=== PATIENT | female | born 1995 | race Caucasian/White ===

== ENCOUNTER → 2016-04-11 | Outpatient (REF) | payer BC | LOC: M LAB REF 09:12 | PROVIDERS: ATTEND Physician Assistant | DX: J03.90 Acute tonsillitis, unspecified (principal) ==

== ENCOUNTER → 2016-08-17 | Outpatient (CLI) | payer OTHER ==
[2016-08-18 11:34] LABS: CONTROL LINE MONO EB INT CTR LINE PRESENT; MONO REFLEX EBV VCA IgM NEGATIVE (NEGATIVE)
== END ==
LOC: M WUC 12:19
PROVIDERS: ATTEND Physician Assistant Medical
DX: R53.82 Chronic fatigue, unspecified (principal); J02.9 Acute pharyngitis, unspecified

== ENCOUNTER → 2017-03-16 | Outpatient (REF) | payer OTHER ==
[2017-03-16 16:10] LABS: CHLAMYDIA DNA AMPLIFICATION NEGATIVE (NEGATIVE); GC DNA AMPLIFICATION NEGATIVE (NEGATIVE)
== END ==
LOC: M LAB REF 13:46
DX: Z11.3 Encounter for screening for infections with a predominantly sexual mode of transmission (principal)
CPT/HCPCS: 87591

== ENCOUNTER → 2017-04-17 | Outpatient (CLI) | payer OTHER ==
[2017-04-17 17:38] LABS: BASO % 0.3 % (0.0-1.0); EOS % 0.3 % (0.0-3.0); HEMOGLOBIN 13.1 g/dl (12.0-16.0); IMMATURE GRANULOCYTE % 0.3 % (0-3.0); LYMPH # 1.7 10^3/uL (1.5-6.5); LYMPH % 27.6 % (24.0-44.0); MEAN CORPUSCULAR HEMOGLOBIN 28.3 pg (27.0-33.0); MEAN CORPUSCULAR HGB CONC 33.6 g/dl (32.0-36.5); MEAN CORPUSCULAR VOLUME 84.2 fl (80.0-96.0); MONO # 0.6 10^3/uL (0.0-0.8); MONO % 8.7 % (0.0-5.0); NEUTROPHILS % 62.8 % (36.0-66.0); PLATELET COUNT, AUTOMATED 216 10^3/uL (150-450); RED BLOOD COUNT 4.63 10^6/uL (4.00-5.40); RED CELL DISTRIBUTION WIDTH 12.1 % (11.5-14.5); WHITE BLOOD COUNT 6.3 10^3/uL (4.0-10.0)
[2017-04-17 18:21] LABS: FREE T4 1.06 NG/DL (0.76-1.46)
== END ==
LOC: M WUC 14:56
DX: R53.83 Other fatigue (principal); F41.1 Generalized anxiety disorder
CPT/HCPCS: 84443

== ENCOUNTER → 2018-02-18 | Outpatient (CLI) | payer OTHER ==
--- NOTE | 2018-02-21 16:10 | SLEEPHOME ---
DATE OF PROCEDURE: 02/18/2018 ORDERED BY: Dr. Kline Diagnostic home sleep testing was performed for evaluation for obstructive sleep apnea syndrome in this patient with a history of somnolence. For testing a nocturnal T3 respiratory monitoring device was used. Continuous record was made of pulse, oxygen saturation, airflow, chest and abdominal strain and body position. 10 hours 59 minutes of data were reviewed. There were 7 hours and 14 minutes marked as time in bed. During the interval marked time in bed, there were only 17 respiratory events identified of 10 seconds in duration or greater for a respiratory event index of 2.3. Baseline pulse rate was 71 beats per minute. Pulse rate ranged from 28-110. Baseline saturation 94%. Saturations fell to 81%. The oxygen desaturation index was 1.9. Testing was performed in both the supine and nonsupine positions. IMPRESSION: Borderline home sleep testing with patterning suggesting the obstructive sleep apnea syndrome. RECOMMENDATIONS: The frequency of events identified on this home test was low, however home testing is known to underestimate the frequency and severity of respiratory events. Given the oxygen desaturations identified, close clinical followup is recommended and if sleep symptoms persist formal in laboratory sleep testing is significantly more sensitive in identifying obstructive sleep apnea.
== END ==
LOC: M SLEEP HO 13:12
PROVIDERS: ATTEND Internal Medicine Pulmonary Disease
DX: R40.0 Somnolence (principal)

== ENCOUNTER → 2018-03-11 | Outpatient (CLI) | payer OTHER ==
[2018-03-11 17:23] LABS: ALBUMIN 3.9 GM/DL (3.2-5.2); ALT/SGPT 16 U/L (12-78); BILIRUBIN,TOTAL 0.3 MG/DL (0.2-1.0); BLOOD UREA NITROGEN 12 MG/DL (7-18); C REACTIVE PROTEIN QUANTITATIV 1.72 MG/DL (0.00-0.30); CALCIUM LEVEL 8.9 MG/DL (8.5-10.1); CARBON DIOXIDE LEVEL 27 MEQ/L (21-32); CHLORIDE LEVEL 103 MEQ/L (98-107); CREATININE FOR GFR 0.85 MG/DL (0.55-1.30); GLOMERULAR FILTRATION RATE > 60.0 (>60); GLUCOSE, FASTING 88 MG/DL (70-100); POTASSIUM SERUM 3.7 MEQ/L (3.5-5.1); SODIUM LEVEL 138 MEQ/L (136-145); TOTAL PROTEIN 7.7 GM/DL (6.4-8.2)
[2018-03-11 17:26] LABS: BASO % 0.3 % (0.0-1.0); EOS # 0.1 10^3/uL (0.0-0.50); EOS % 0.7 % (0.0-3.0); HEMATOCRIT 42.1 % (36.0-47.0); HEMOGLOBIN 13.8 g/dl (12.0-15.5); LYMPH # 2.4 10^3/uL (1.5-6.5); LYMPH % 31.6 % (24.0-44.0); MEAN CORPUSCULAR HEMOGLOBIN 27.5 pg (27.0-33.0); MEAN CORPUSCULAR HGB CONC 32.8 g/dl (32.0-36.5); MEAN CORPUSCULAR VOLUME 83.9 fl (80.0-96.0); MONO # 0.7 10^3/uL (0.0-0.8); MONO % 8.9 % (0.0-5.0); NEUTROPHILS # 4.4 10^3/uL (1.8-7.7); NEUTROPHILS % 58.4 % (36.0-66.0); PLATELET COUNT, AUTOMATED 241 10^3/uL (150-450); RED BLOOD COUNT 5.02 10^6/uL (4.00-5.40); WHITE BLOOD COUNT 7.5 10^3/uL (4.0-10.0)
[2018-03-11 17:28] LABS: TOTAL 25(OH) VITAMIN D 46.5 NG/ML (30.0-100.0)
[2018-03-11 19:05] LABS: ERYTHROCYTE SEDIMENTATION RATE 11 mm/hr (0-20)
[2018-03-13 14:53] LABS: ANTINUCLEAR ANTIBODIES DIRECT Negative (Negative); Lyme Disease IgG/IgM Antibodie <0.91 ISR (0.00-0.90); Lyme Disease IgM Ab Quantitati <0.80 index (0.00-0.79)
== END ==
LOC: M WUC 12:20
PROVIDERS: ATTEND Physician Assistant
DX: R53.82 Chronic fatigue, unspecified (principal)

== ENCOUNTER → 2018-04-15 | Outpatient (CLI) | payer OTHER ==
--- NOTE | 2018-04-17 07:22 | SLEEPCENT ---
DATE OF PROCEDURE: 04/15/2018 ORDERED BY: Dr. Kline Nocturnal polysomnography was performed for evaluation of sleep physiology in this patient with hypersomnolence. 7 hours and 30 minutes of data were reviewed. There were 321 minutes of sleep identified. Sleep latency was prolonged at 38 minutes. The patient did not achieve rapid eye movement (REM) sleep. Sleep architecture was poor with poor progression. There was a prolonged period of wake between 1:45 and 3:00 a.m. resulting in reduced sleep efficiency of 72%. The electrocardiogram showed a sinus rhythm with some mildly wandering baseline. The average heart rate was 70 beats per minute. Rate ranged 55-90. Electroencephalogram (EEG) showed significant coarsening in background. There were no focal events identified. Possibly medication effect. Flow channels revealed only one respiratory events of 10 seconds in duration or greater for an apnea-hypopnea index well within normal limits of 0.2. Some snoring was noted, however, respiratory related arousals occurred only 0.6 times per hour and oxygen saturations remained normal. There was some scattered limb activity, but no trains of events. Limb movement arousal index was 6. IMPRESSION: Abnormal nocturnal polysomnography with poor sleep architecture and poor progression, possibly medication effect.
== END ==
LOC: M SLEEP 19:51
PROVIDERS: ATTEND Internal Medicine Pulmonary Disease
DX: R40.0 Somnolence (principal)

== ENCOUNTER → 2018-05-08 | Outpatient (REF) | payer OTHER ==
[2018-05-08 20:24] LABS: CHLAMYDIA DNA AMPLIFICATION NEGATIVE (NEGATIVE); GC DNA AMPLIFICATION NEGATIVE (NEGATIVE)
== END ==
LOC: M LAB REF 17:05
PROVIDERS: ATTEND Family Medicine
DX: Z11.3 Encounter for screening for infections with a predominantly sexual mode of transmission (principal); Z12.4 Encounter for screening for malignant neoplasm of cervix; R35.0 Frequency of micturition

== ENCOUNTER → 2018-09-10 | Outpatient (REF) | payer OTHER ==
[2018-09-10 16:35] LABS: FREE T4 0.94 NG/DL (0.76-1.46); THYROID STIMULATING HORMONE 0.911 uIU/ML (0.358-3.740)
[2018-09-10 16:43] LABS: TOTAL 25(OH) VITAMIN D 41.4 NG/ML (30.0-100.0)
== END ==
LOC: M LAB REF 15:40
PROVIDERS: ATTEND Family Medicine
DX: Z13.29 Encounter for screening for other suspected endocrine disorder (principal); E55.9 Vitamin D deficiency, unspecified

== ENCOUNTER → 2019-01-01 | Outpatient (REF) | payer OTHER ==
[2019-01-01 14:07] LABS: APPEARANCE, URINE HAZY (CLEAR); BACTERIA, URINE AUTO NEGATIVE (NEGATIVE); BILIRUBIN, URINE AUTO NEGATIVE (NEGATIVE); BLOOD, URINE BLOOD NEGATIVE (NEGATIVE); CALCIUM OXALATE CRYSTALS SMALL; COLOR, URINE YELLOW (YELLOW); GLUCOSE, URINE (UA) AUTO NEGATIVE (NEGATIVE); KETONE, URINE AUTO NEGATIVE (NEGATIVE); LEUKOCYTE ESTERASE, URINE AUTO NEGATIVE (NEGATIVE); MUCUS, URINE SMALL (NEGATIVE); NITRITE, URINE AUTO NEGATIVE (NEGATIVE); PROTEIN, URINE AUTO NEGATIVE (NEGATIVE); RBC, URINE AUTO 2 /HPF (0-3); SPECIFIC GRAVITY URINE AUTO 1.027 (1.002-1.035); SQUAMOUS EPITHELIAL CELL UR AU 1 /HPF (0-6); UROBILINOGEN, URINE AUTO 0.2 mg/dL (0.0-2.0); WBC, URINE AUTO 1 /HPF (0-3)
== END ==
LOC: M SMT 13:05
PROVIDERS: ATTEND Nurse Practitioner Family
DX: R32 Unspecified urinary incontinence (principal)

== ENCOUNTER 2019-01-21 19:47 | Outpatient (CLI) | payer OTHER ==
--- NOTE | 2019-01-23 07:26 | SLEEPMSLT ---
DATE OF PROCEDURE: 01/21/2019 ORDERING PHYSICIAN: Dr. Stephania Hickman, copy to Dr. Hope. INTERPRETATION: Nocturnal polysomnography with multiple sleep latency testing was performed for evaluation of persistent somnolence. For the night time, testing of 8 hours and 57 minutes of data were reviewed. There were 454.5 minutes of sleep identified. Sleep latency was normal at 18.5 minutes. REM sleep was delayed at 218 minutes but sleep architecture was reasonably good with minimal fragmentation. There were two Rapid eye movement (REM) cycles noted. Overall sleep efficiency was 94.6%. The electrocardiogram showed sinus rhythm with an average heart rate of 82 beats per minute. Rate ranged 60-105. EEG showed essentially normal waveforms for awake and sleep. There were only seven respiratory events identified of 10 seconds in duration or greater for an apnea-hypopnea index well within normal limits at 0.9, minimal snoring was noted in the course of study and there was little activity in the limb EMG leads. Oxygen saturations remained 90% plus. Nocturnal polysomnography was followed by multiple sleep latency testing. Four nap opportunities were offered at 2-hour intervals. Sleep was appreciated on four out of four nap opportunities. No REM sleep was appreciated. No significant EEG artifact was noted on the first two the study. The patient's mean sleep latency was in the gr ay zone at 7 minutes. IMPRESSION: Normal nocturnal polysomnography was mild snoring. Multiple sleep latency testing revealing a mean sleep latency of 7 minutes is in the castillo zone between normal greater than 10 minutes and pathologic less than 5.
== END 2019-01-22 15:00 ==
LOC: M SLEEP 19:47
PROVIDERS: ATTEND Internal Medicine Pulmonary Disease
DX: R40.0 Somnolence (principal)

== ENCOUNTER → 2019-06-10 | Outpatient (CLI) | payer OTHER | LOC: M LABSMTC 14:13 | PROVIDERS: ATTEND Family Medicine | DX: Z11.59 Encounter for screening for other viral diseases (principal) ==

== ENCOUNTER 2019-09-12 13:00 | Emergency (ER) | payer BC, OTHER ==
[2019-10-19 17:08] LABS: BASO % 0.5 % (0.0-1.0); EOS % 0.5 % (0.0-3.0); HEMATOCRIT 45.2 % (36.0-47.0); HEMOGLOBIN 14.6 g/dl (12.0-15.5); LYMPH # 2.7 10^3/uL (1.5-5.0); LYMPH % 31.8 % (24.0-44.0); MEAN CORPUSCULAR HEMOGLOBIN 27.8 pg (27.0-33.0); MEAN CORPUSCULAR HGB CONC 32.3 g/dl (32.0-36.5); MEAN CORPUSCULAR VOLUME 86.1 fl (80.0-96.0); MONO # 0.6 10^3/uL (0.0-0.8); MONO % 7.4 % (0.0-5.0); NEUTROPHILS % 59.7 % (36.0-66.0); PLATELET COUNT, AUTOMATED 266 10^3/uL (150-450); RED BLOOD COUNT 5.25 10^6/uL (4.00-5.40); WHITE BLOOD COUNT 8.4 10^3/uL (4.0-10.0)
[2019-11-22 11:50] LABS: ALBUMIN 3.9 GM/DL (3.2-5.2); ALT/SGPT 26 U/L (12-78); BILIRUBIN,TOTAL 0.3 MG/DL (0.2-1.0); BLOOD UREA NITROGEN 16 MG/DL (7-18); CALCIUM LEVEL 9.7 MG/DL (8.5-10.1); CARBON DIOXIDE LEVEL 29 MEQ/L (21-32); CHLORIDE LEVEL 105 MEQ/L (98-107); CREATININE FOR GFR 0.91 MG/DL (0.55-1.30); GLOMERULAR FILTRATION RATE > 60.0 (>60); GLUCOSE, FASTING 87 MG/DL (70-100); HEPATITIS B SURFACE ANTIBODY NEGATIVE (POSITIVE); HEPATITIS B SURFACE ANTIGEN NEGATIVE (NEGATIVE); HIV 1&2 SCREEN CENTAUR NEGATIVE (NEGATIVE); POTASSIUM SERUM 4.3 MEQ/L (3.5-5.1); SODIUM LEVEL 140 MEQ/L (136-145); TOTAL PROTEIN 8.5 GM/DL (6.4-8.2)
[2019-11-22 11:53] LABS: HCG, SERUM QUALITATIVE NEGATIVE (NEGATIVE)
== END 2019-09-12 13:47 | disposition home or self-care (01) ==
LOC: M ED 13:00
DX: S61.230A Puncture wound without foreign body of right index finger without damage to nail, initial encounter (principal); Z77.21 Contact with and (suspected) exposure to potentially hazardous body fluids; W45.8XXA Other foreign body or object entering through skin, initial encounter; Y92.89 Other specified places as the place of occurrence of the external cause; Y93.F9 Activity, other caregiving; Y99.0 Civilian activity done for income or pay; Z79.3 Long term (current) use of hormonal contraceptives; Z79.899 Other long term (current) drug therapy

== ENCOUNTER → 2020-02-23 | Outpatient (CLI) | payer SELFPAY | LOC: M LABSMTC 11:54 | PROVIDERS: ATTEND Pediatrics | DX: Z20.822 Contact with and (suspected) exposure to COVID-19 (principal) ==

== ENCOUNTER → 2020-09-13 | Outpatient (CLI) | payer BC ==
[2020-09-13 12:05] LABS: BASO % 0.3 % (0.0-1.0); EOS # 0.1 10^3/uL (0.0-0.5); EOS % 0.7 % (0.0-3.0); HEMATOCRIT 41.6 % (36.0-47.0); HEMOGLOBIN 13.8 g/dl (12.0-15.5); LYMPH # 2.5 10^3/uL (1.5-5.0); LYMPH % 35.8 % (24.0-44.0); MEAN CORPUSCULAR HGB CONC 33.2 g/dl (32.0-36.5); MEAN CORPUSCULAR VOLUME 84.4 fl (80.0-96.0); MONO # 0.6 10^3/uL (0.0-0.8); MONO % 9.2 % (2.0-8.0); NEUTROPHILS # 3.7 10^3/uL (1.5-8.5); NEUTROPHILS % 53.7 % (36.0-66.0); PLATELET COUNT, AUTOMATED 233 10^3/uL (150-450); RED BLOOD COUNT 4.93 10^6/uL (4.00-5.40)
[2020-09-13 12:16] LABS: ALBUMIN 3.7 GM/DL (3.2-5.2); ALT/SGPT 18 U/L (12-78); BILIRUBIN,TOTAL 0.3 MG/DL (0.2-1.0); BLOOD UREA NITROGEN 13 MG/DL (7-18); CALCIUM LEVEL 8.8 MG/DL (8.5-10.1); CARBON DIOXIDE LEVEL 26 MEQ/L (21-32); CHLORIDE LEVEL 107 MEQ/L (98-107); CHOLESTEROL LEVEL 201 MG/DL (<200); CHOLESTEROL RISK RATIO 2.258 (<5); CREATININE FOR GFR 0.82 MG/DL (0.55-1.30); FREE T4 0.97 NG/DL (0.76-1.46); GLOMERULAR FILTRATION RATE > 60.0 (>60); GLUCOSE, FASTING 93 MG/DL (70-100); HDL CHOLESTEROL 89 MG/DL (>40); LDL CHOLESTEROL 90 MG/DL (<100); NON-HDL-C 112 MG/DL; POTASSIUM SERUM 4.3 MEQ/L (3.5-5.1); RHEUMATOID FACTOR QUANT < 10.0 IU/ML (<15.0); SODIUM LEVEL 138 MEQ/L (136-145); TOTAL PROTEIN 7.8 GM/DL (6.4-8.2); TRIGLYCERIDES LEVEL 108 MG/DL (<150)
[2020-09-13 12:18] LABS: TOTAL 25(OH) VITAMIN D 30.2 NG/ML (30.0-100.0)
[2020-09-15 00:07] LABS: ANA (HEP2) Negative (.); CYCLIC CITRULLINATED PEPTIDE 8 units (0-19); Lyme Disease IgG/IgM Antibodie <0.91 ISR (0.00-0.90); Lyme Disease IgM Ab Quantitati <0.80 index (0.00-0.79)
== END ==
LOC: M WUC 09:21
PROVIDERS: ATTEND Family Medicine
DX: E55.9 Vitamin D deficiency, unspecified (principal); R53.82 Chronic fatigue, unspecified; Z13.0 Encounter for screening for diseases of the blood and blood-forming organs and certain disorders involving the immune mechanism; Z13.29 Encounter for screening for other suspected endocrine disorder; Z13.220 Encounter for screening for lipoid disorders

== ENCOUNTER → 2020-09-23 | Outpatient (CLI) | payer BC ==
--- NOTE | 2020-09-23 16:22 | REP ---
INDICATION: PELVIC AND PERINEAL PAIN. COMPARISON: None. TECHNIQUE: Transvesical and transvaginal scanning FINDINGS: The uterus measures 7.1 x 2.8 x 3.6 cm. The parenchymal echo pattern is within normal limits. The endometrial echo complex is smooth and unremarkable appearing measuring 3 mm in its greatest thickness. Right ovary measures 2.1 x 1.2 x 1.1 cm and is within normal limits with an RI 0.54. Left ovary measures 2 x 1.6 x 1.3 cm and is within normal limits with an RI 0.49. Urinary bladder measures 5 x 3 x 7 cm. IMPRESSION: Within normal limits <Electronically signed by Galo Zabala > 09/23/20 [id number]
== END ==
LOC: M RAD 15:34
PROVIDERS: ATTEND Family Medicine
DX: R10.2 Pelvic and perineal pain (principal)

== ENCOUNTER → 2020-10-27 | Outpatient (REF) | LOC: M LABSMTC 10:41 | PROVIDERS: ATTEND Pediatrics | DX: Z20.822 Contact with and (suspected) exposure to COVID-19 (principal) ==

== ENCOUNTER → 2021-10-30 | Outpatient (REF) | LOC: M LABSMTC 11:20 | PROVIDERS: ATTEND Family Medicine | DX: Z20.822 Contact with and (suspected) exposure to COVID-19 (principal) ==

== ENCOUNTER → 2021-11-01 | Outpatient (REF) | LOC: M LABSMTC 10:00 | PROVIDERS: ATTEND Family Medicine | DX: Z20.822 Contact with and (suspected) exposure to COVID-19 (principal) ==

== ENCOUNTER → 2021-12-19 | Outpatient (REF) ==
[2021-12-19 15:15] LABS: RSV AMPLIFICATION NEGATIVE (NEGATIVE)
== END ==
LOC: M EMP 12:38
PROVIDERS: ATTEND Family Medicine
DX: Z11.52 Encounter for screening for COVID-19 (principal)

== ENCOUNTER → 2022-01-17 | Outpatient (REF) ==
[2022-01-17 13:41] LABS: RSV AMPLIFICATION NEGATIVE (NEGATIVE)
== END ==
LOC: M LABSMTC 10:59
PROVIDERS: ATTEND Family Medicine
DX: Z20.822 Contact with and (suspected) exposure to COVID-19 (principal)

== ENCOUNTER → 2022-02-17 | Outpatient (REF) ==
[2022-02-17 10:11] LABS: RSV AMPLIFICATION NEGATIVE (NEGATIVE)
== END ==
LOC: M EMP 08:13
PROVIDERS: ATTEND Family Medicine
DX: Z11.59 Encounter for screening for other viral diseases (principal)

== ENCOUNTER → 2023-01-15 | Outpatient (REF) ==
[2023-01-15 15:05] LABS: RSV AMPLIFICATION NEGATIVE (NEGATIVE)
== END ==
LOC: M EMP 10:39
PROVIDERS: ATTEND Family Medicine
DX: Z11.52 Encounter for screening for COVID-19 (principal)

== ENCOUNTER → 2023-03-16 | Outpatient (REF) | LOC: M EMP 10:42 | PROVIDERS: ATTEND Family Medicine | DX: Z53.9 Procedure and treatment not carried out, unspecified reason (principal) ==

== ENCOUNTER → 2023-12-06 | Outpatient (REF) | payer BC | LOC: M LAB REF 17:18 | PROVIDERS: ATTEND Family Medicine | DX: J06.9 Acute upper respiratory infection, unspecified (principal) ==

== ENCOUNTER → 2023-12-13 | Outpatient (CLI) | payer BC ==
[2023-12-13 13:19] LABS: HEMATOCRIT 39.6 % (36.0-47.0); HEMOGLOBIN 13.2 g/dl (12.0-15.5); MEAN CORPUSCULAR HEMOGLOBIN 28.9 pg (27.0-33.0); MEAN CORPUSCULAR HGB CONC 33.3 g/dl (32.0-36.5); MEAN CORPUSCULAR VOLUME 86.8 fl (80.0-96.0); PLATELET COUNT, AUTOMATED 256 10^3/uL (150-450); RED BLOOD COUNT 4.56 10^6/uL (4.00-5.40); WHITE BLOOD COUNT 9.4 10^3/uL (4.0-10.0)
[2023-12-13 15:34] LABS: GC DNA AMPLIFICATION NEGATIVE (NEGATIVE)
[2023-12-13 19:13] LABS: HIV 1&2 SCREEN NEGATIVE (NEGATIVE)
[2023-12-13 19:26] LABS: HEPATITIS C VIRUS ABY INDEX < 0.02 INDEX (<0.8)
== END ==
LOC: M PLALAB 10:45
PROVIDERS: ATTEND Advanced Practice Midwife
DX: Z34.01 Encounter for supervision of normal first pregnancy, first trimester (principal)

== ENCOUNTER → 2023-12-13 | Outpatient (REF) | payer BC | LOC: M PLALAB 10:29 | PROVIDERS: ATTEND Advanced Practice Midwife | DX: Z53.9 Procedure and treatment not carried out, unspecified reason (principal) ==

== ENCOUNTER → 2024-01-18 | Outpatient (REF) | payer BC | LOC: M PLALAB 10:14 | PROVIDERS: ATTEND Advanced Practice Midwife | DX: O99.342 Other mental disorders complicating pregnancy, second trimester (principal); Z3A.00 Weeks of gestation of pregnancy not specified ==

== ENCOUNTER → 2024-02-19 | Outpatient (REF) | LOC: M EMP 09:17 | PROVIDERS: ATTEND Family Medicine | DX: Z11.52 Encounter for screening for COVID-19 (principal) ==

== ENCOUNTER → 2024-02-21 | Outpatient (REF) | LOC: M EMP 09:55 | PROVIDERS: ATTEND Family Medicine | DX: Z01.89 Encounter for other specified special examinations (principal) ==

== ENCOUNTER → 2024-02-29 | Outpatient (CLI) | payer BC | LOC: M WHC 08:29 | PROVIDERS: ATTEND Advanced Practice Midwife | DX: O99.342 Other mental disorders complicating pregnancy, second trimester (principal); Z3A.21 21 weeks gestation of pregnancy ==

== ENCOUNTER → 2024-03-28 | Outpatient (CLI) | payer BC ==
[2024-03-28 15:40] LABS: HEMATOCRIT 35.5 % (36.0-47.0); HEMOGLOBIN 11.9 g/dl (12.0-15.5); MEAN CORPUSCULAR HEMOGLOBIN 29.8 pg (27.0-33.0); MEAN CORPUSCULAR HGB CONC 33.5 g/dl (32.0-36.5); PLATELET COUNT, AUTOMATED 205 10^3/uL (150-450); RED BLOOD COUNT 3.99 10^6/uL (4.00-5.40); WHITE BLOOD COUNT 9.5 10^3/uL (4.0-10.0)
[2024-03-28 15:41] LABS: GLUCOSE CHALLENGE TEST 1 HOUR 139 MG/DL (LESS THAN 140)
[2024-03-28 16:16] LABS: HIV 1&2 SCREEN NEGATIVE (NEGATIVE)
[2024-03-28 16:24] LABS: HEPATITIS C VIRUS ABY INDEX 0.11 INDEX (<0.8)
[2024-03-28 16:51] LABS: Trichomonas vaginalis (AMP) NOT DETECTED (NEGATIVE)
[2024-03-28 17:15] LABS: GC DNA AMPLIFICATION NEGATIVE (NEGATIVE)
== END ==
LOC: M PLALAB 12:04
PROVIDERS: ATTEND Nurse Practitioner Family
DX: Z34.80 Encounter for supervision of other normal pregnancy, unspecified trimester (principal)

== ENCOUNTER → 2024-04-03 | Outpatient (CLI) | payer BC | LOC: M LAB 08:06 | PROVIDERS: ATTEND Nurse Practitioner Family | DX: R73.09 Other abnormal glucose (principal) ==

== ENCOUNTER → 2024-04-08 | Outpatient (CLI) | payer BC | LOC: M WHC 08:15 | PROVIDERS: ATTEND Advanced Practice Midwife | DX: O36.5920 Maternal care for other known or suspected poor fetal growth, second trimester, not applicable or unspecified (principal); Z3A.26 26 weeks gestation of pregnancy ==

== ENCOUNTER → 2024-05-23 | Outpatient (CLI) | payer BC | LOC: M RAD 15:30 | PROVIDERS: ATTEND Advanced Practice Midwife | DX: O99.343 Other mental disorders complicating pregnancy, third trimester (principal) ==

== ENCOUNTER 2024-06-03 10:20 | Emergency (ER) | payer BC ==
[~2024-06-03] VITALS: Ht 160 cm; Wt 89.4 kg
[2024-06-03 10:22] VITALS: TEMP 97.8
[2024-06-03 10:53] LABS: BASO % 0.3 % (0.0-1.0); EOS % 0.3 % (0.0-3.0); HEMATOCRIT 40.1 % (36.0-47.0); HEMOGLOBIN 13.5 g/dl (12.0-15.5); LYMPH # 2.3 10^3/uL (1.5-5.0); LYMPH % 23.4 % (24.0-44.0); MEAN CORPUSCULAR HEMOGLOBIN 29.7 pg (27.0-33.0); MEAN CORPUSCULAR HGB CONC 33.7 g/dl (32.0-36.5); MEAN CORPUSCULAR VOLUME 88.1 fl (80.0-96.0); MONO # 0.7 10^3/uL (0.0-0.8); MONO % 6.8 % (2.0-8.0); NEUTROPHILS # 6.8 10^3/uL (1.5-8.5); NEUTROPHILS % 68.7 % (36.0-66.0); PLATELET COUNT, AUTOMATED 232 10^3/uL (150-450); RED BLOOD COUNT 4.55 10^6/uL (4.00-5.40); WHITE BLOOD COUNT 9.9 10^3/uL (4.0-10.0)
[2024-06-03 11:22] LABS: ALBUMIN 3.1 G/DL (3.2-5.2); ALKALINE PHOSPHATASE 159 U/L (35-104); ALT/SGPT 17 U/L (7.0-40); AST/SGOT 17 U/L (<34); BILIRUBIN,TOTAL 0.4 MG/DL (0.3-1.2); BLOOD UREA NITROGEN 12 MG/DL (9-23); CALCIUM LEVEL 9.4 MG/DL (8.5-10.1); CARBON DIOXIDE LEVEL 24 MMOL/L (20-31); CHLORIDE LEVEL 102 MMOL/L (98-107); CREATININE FOR GFR 0.61 MG/DL (0.55-1.30); GLOMERULAR FILTRATION RATE > 90.0 (>60); GLUCOSE, FASTING 82 MG/DL (60-100); SODIUM LEVEL 138 MMOL/L (136-145); TOTAL PROTEIN 7.2 G/DL (5.7-8.2)
[2024-06-03 12:45] LABS: APPEARANCE, URINE CLOUDY (CLEAR); BACTERIA, URINE AUTO 1+ (NEGATIVE); BILIRUBIN, URINE AUTO NEGATIVE (NEGATIVE); BLOOD, URINE BLOOD NEGATIVE (NEGATIVE); COLOR, URINE YELLOW (YELLOW); GLUCOSE, URINE (UA) AUTO NEGATIVE (NEGATIVE); KETONE, URINE AUTO NEGATIVE (NEGATIVE); LEUKOCYTE ESTERASE, URINE AUTO 3+ (NEGATIVE); MUCUS, URINE SMALL (NEGATIVE); NITRITE, URINE AUTO NEGATIVE (NEGATIVE); PROTEIN, URINE AUTO NEGATIVE (NEGATIVE); RBC, URINE AUTO 3 /HPF (0-3); SPECIFIC GRAVITY URINE AUTO 1.018 (1.002-1.035); SQUAMOUS EPITHELIAL CELL UR AU 27 /HPF (0-6); UROBILINOGEN, URINE AUTO 0.2 mg/dL (0.0-2.0); WBC, URINE AUTO 26 /HPF (0-3)
[2024-06-03] MEDS ORDERED: VALA1TAB5 PO (13:05)
[2024-06-03] MEDS ORDERED: PRED20TA PO (13:06)
[2024-06-03] MEDS ORDERED: CEFD300C PO (13:07)
[2024-06-03] MEDS ORDERED: BACIOIN23 OP (13:07)
[2024-06-03 14:00] VITALS: BP 120/71; O2SAT 97
== END 2024-06-03 14:09 | disposition home or self-care (01) ==
LOC: M ED 10:20
DX: O99.353 Diseases of the nervous system complicating pregnancy, third trimester (principal); G51.0 Bell's palsy; F41.9 Anxiety disorder, unspecified; Z79.2 Long term (current) use of antibiotics; Z79.52 Long term (current) use of systemic steroids; Z79.899 Other long term (current) drug therapy; Z3A.00 Weeks of gestation of pregnancy not specified

== ENCOUNTER → 2024-06-12 | Outpatient (REF) | payer BC ==
[~2024-06-12] MED LIST: BACIOIN23 OP; CEFD300C PO; PRED20TA PO; VALA1TAB5 PO
[2024-06-12 17:30] LABS: HEMATOCRIT 37.2 % (36.0-47.0); HEMOGLOBIN 12.4 g/dl (12.0-15.5); MEAN CORPUSCULAR HEMOGLOBIN 29.5 pg (27.0-33.0); MEAN CORPUSCULAR HGB CONC 33.3 g/dl (32.0-36.5); MEAN CORPUSCULAR VOLUME 88.6 fl (80.0-96.0); PLATELET COUNT, AUTOMATED 225 10^3/uL (150-450); WHITE BLOOD COUNT 11.4 10^3/uL (4.0-10.0)
[2024-06-12 17:58] LABS: URIC ACID 4.7 MG/DL (3.1-7.8)
[2024-06-12 18:00] LABS: CREATININE,RANDOM URINE 69.4 MG/DL; LDH LACTATE DEHYDROGENASE 161 U/L (120-246)
[2024-06-12 18:01] LABS: ALT/SGPT 15 U/L (7.0-40); AST/SGOT 13 U/L (<34); BILIRUBIN,TOTAL 0.3 MG/DL (0.3-1.2); CREATININE FOR GFR 0.59 MG/DL (0.55-1.30); GLOMERULAR FILTRATION RATE > 90.0 (>60)
[2024-06-12 18:03] LABS: TOTAL PROTEIN,RANDOM URINE < 6.0 MG/DL (0.0-14.0)
== END ==
LOC: M SFHCWAGY 16:55
PROVIDERS: ATTEND Advanced Practice Midwife
DX: O16.3 Unspecified maternal hypertension, third trimester (principal)

== ENCOUNTER → 2024-06-19 | Outpatient (REF) | payer BC | LOC: M PLALAB 15:45 | PROVIDERS: ATTEND Advanced Practice Midwife | DX: O99.343 Other mental disorders complicating pregnancy, third trimester (principal) ==

== ENCOUNTER → 2024-08-14 | Outpatient (CLI) | payer BC ==
[~2024-08-14] MED LIST changes: +ACET-683 PO; +BACI1CAP4 PO; +CALC500C16 PO; +CLAR10CA3 PO; +COLA100C5 PO; +GNP250TA9 PO; +IBUP80TA PO; +META0.52 PO; +OMEG12002 PO; +PNV1TABL16 PO; +SERT-141 PO; +ZOLO100T PO
== END ==
LOC: M SOG 15:28
PROVIDERS: ATTEND Neuromusculoskeletal Medicine, Sports Medicine
DX: M79.641 Pain in right hand (principal)

== ENCOUNTER → 2024-08-25 | Outpatient (CLI) | payer BC ==
[2024-08-25 15:13] LABS: BASO # 0.0 10^3/uL (0.0-0.2); BASO % 0.3 % (0.0-1.0); EOS # 0.0 10^3/uL (0.0-0.5); EOS % 0.5 % (0.0-3.0); LYMPH # 2.7 10^3/uL (1.5-5.0); LYMPH % 31.5 % (24.0-44.0); MONO # 0.7 10^3/uL (0.0-0.8); MONO % 7.5 % (2.0-8.0); NEUTROPHILS # 5.2 10^3/uL (1.5-8.5); NEUTROPHILS % 60.0 % (36.0-66.0); PLATELET COUNT, AUTOMATED 244 10^3/uL (150-450)
[2024-08-25 15:19] LABS: ERYTHROCYTE SEDIMENTATION RATE 30 mm/hr (0-20)
== END ==
LOC: M LAB 14:34
PROVIDERS: ATTEND Neuromusculoskeletal Medicine, Sports Medicine
DX: L02.511 Cutaneous abscess of right hand (principal); B99.9 Unspecified infectious disease

== ENCOUNTER → 2024-08-25 | Outpatient (CLI) | payer BC ==
[2024-08-28 18:49] LABS: LYME TOTAL ANTIBODY CIA <= 0.90 Index (<=0.90)
== END ==
LOC: M LAB 14:32
PROVIDERS: ATTEND Psychiatry & Neurology Neurology
DX: G51.0 Bell's palsy (principal)

== ENCOUNTER → 2024-11-15 | Outpatient (RCR) | LOC: M EMPSSV 10-21 11:07 | PROVIDERS: ATTEND Family Medicine | DX: Z20.828 Contact with and (suspected) exposure to other viral communicable diseases (principal) ==